=== PATIENT | male | born 1955 | race Caucasian/White ===

== ENCOUNTER 2019-10-14 12:35 | Emergency (ER) | payer MEDICAID ==
[~2019-10-14] VITALS: Ht 175.3 cm; Wt 63.6 kg
[~2019-10-14 12:35] MED LIST: ASPI-611 PO; BP MED; HYDR-2382 PO; OMEP20CA15 PO
[2019-10-14] MEDS ORDERED: HYDROcodone/acetaminophen 10/325mg tab PO ONE (14:30)
[2019-10-14] MEDS ORDERED: GABA-530 PO (14:31)
--- NOTE | 2019-10-14 14:34 | NUR ---
Pt transported to X-ray with Camera Machinist.
[2019-10-14 15:33] VITALS: BP 162/91
== END 2019-10-14 15:39 | disposition home or self-care (01) ==
LOC: ER 12:36
DX: S22.31XA Fracture of one rib, right side, initial encounter for closed fracture (principal); R91.8 Other nonspecific abnormal finding of lung field; Z86.69 Personal history of other diseases of the nervous system and sense organs; Z90.89 Acquired absence of other organs; Z88.0 Allergy status to penicillin; Z72.89 Other problems related to lifestyle; Z79.899 Other long term (current) drug therapy; W01.0XXA Fall on same level from slipping, tripping and stumbling without subsequent striking against object, initial encounter; Y93.89 Activity, other specified; Y92.89 Other specified places as the place of occurrence of the external cause; Y99.8 Other external cause status
CPT/HCPCS: 71045; 71100; 99284

== ENCOUNTER 2020-09-11 14:24 | Emergency (ER) | payer MEDICAID ==
[~2020-09-11] VITALS: Ht 175.3 cm; Wt 54.5 kg
[~2020-09-11 14:24] MED LIST changes: +GABA-530 PO
[2020-09-11 14:37] VITALS: BP 120/63
[2020-09-11] MEDS ORDERED: ondansetron 4mg rapidly disintigrating tab PO ONE (14:50)
[2020-09-11] MEDS ORDERED: morphine 4 MG/ML inj SYRINge IM ONE (14:50)
[2020-09-11] MEDS ORDERED: HYDR-3965 PO (15:05)
[2020-09-11] MEDS ORDERED: ONDA4TAB6 PO (15:05)
== END 2020-09-11 15:33 | disposition home or self-care (01) ==
LOC: ER 14:24
DX: S42.031A Displaced fracture of lateral end of right clavicle, initial encounter for closed fracture (principal); M25.511 Pain in right shoulder; Z86.69 Personal history of other diseases of the nervous system and sense organs; Z90.89 Acquired absence of other organs; Z72.89 Other problems related to lifestyle; Z88.0 Allergy status to penicillin; Z79.82 Long term (current) use of aspirin; Z79.899 Other long term (current) drug therapy; W19.XXXA Unspecified fall, initial encounter; Y93.89 Activity, other specified; Y92.89 Other specified places as the place of occurrence of the external cause; Y99.8 Other external cause status
CPT/HCPCS: 73030; 96372; 99284; J2270

== ENCOUNTER 2020-10-05 08:28 | Day surgery (SDC) | payer MEDICAID ==
[~2020-10-05] VITALS: Ht 175.3 cm; Wt 53.2 kg
[~2020-10-05 08:28] MED LIST changes: +ALBU90AE2 INH; +ATOR40TA PO; -BP MED; +CHOL20002 PO; +FINA5TAB11 PO; -GABA-530 PO; +LISI20TA28 PO; +MAGN400T39 PO; -OMEP20CA15 PO; +PANT-47 PO; +TIOT4MIS3 INH; +albuterol 2.5 MG/3 ML nebule NEB ONE; +cefazolin/dext.iso 2gm/100ml IV ONE; +famotidine 20mg tablet PO ONE; +ringers solution, lacted 1,000 ML IV SCH
[2020-10-05 10:15] VITALS: BP 154/72
[2020-10-05 10:25] LABS: EOSINOPHILS % (AUTO) 0.7 % (0-6); LYMPHOCYTES # (AUTO) 0.8 X10'3 (1.1-4.8); LYMPHOCYTES % (AUTO) 14.9 % (21-51); MEAN CORPUSCULAR HGB CONC 34.6 g/dL (33.0-36.5); MEAN CORPUSCULAR VOLUME 95.3 FL (78-98); MEAN PLATELET VOLUME 6.8 FL (7.4-10.4); MONOCYTES # (AUTO) 0.4 X10'3 (0-0.9); MONOCYTES % (AUTO) 7.7 % (2-12); NEUTROPHILS # (AUTO) 3.8 X10'3 (1.8-7.7); NEUTROPHILS % (AUTO) 75.7 % (42-75); PRE OP HEMATOCRIT 36.5 % (42.0-52.0); PRE OP HEMOGLOBIN 12.6 g/dL (14.0-17.9); PRE OP PLATELET COUNT 241 X10'3 (140-440); RED BLOOD COUNT 3.83 X10'6 (4.70-6.10); RED CELL DISTRIBUTION WIDTH 15.6 % (11.5-14.5)
[2020-10-05 10:55] LABS: ALBUMIN 3.4 G/DL (3.4-5.0); ALKALINE PHOSPHATASE 112 IU/L (46-116); BLOOD UREA NITROGEN 15 MG/DL (7-18); BUN/CREATININE RATIO 17.6 (5.4-32.0); CALCIUM 8.7 MG/DL (8.5-10.1); CHLORIDE 95 MMOL/L (99-107); CREATININE 0.85 MG/DL (0.60-1.10); PRE OP ALT 19 U/L (30-65); PRE OP ANION GAP 7 (8-16); PRE OP AST 33 U/L (10-37); PRE OP BILIRUB, TOTAL 0.7 MG/DL (0.0-1.0); PRE OP GLUCOSE 86 MG/DL (70-104); PRE OP POTASSIUM 5.7 MMOL/L (3.4-5.1); TOTAL CARBON DIOXIDE 23.4 MMOL/L (24-32); TOTAL PROTEIN 6.9 G/DL (6.4-8.2); eGFR > 90 ML/MIN
[2020-10-05 10:58] LABS: PRE OP SODIUM 125 MMOL/L (135-145)
--- NOTE | 2020-10-05 16:25 | NUR ---
PT NOW HAS INFORMED ME THAT HE HAD SEIZURES IN THE PAST, ABOUT A YEAR AGO BUT NO LONGER HAS THEM AND STOPPED TAKING HIS MEDICATION ABOUT 9 MONTHS AGO, WHEN PT ASKED ABOUT HIS DRINKING HX, HE STATES HE HAS A FEW BEERS OCCASIONALLY BUT THAT THE SEIZURES WERE NOT FROM DRINKING. DISCUSSED THIS W/THE OR NURSE WHO IS GOING TO UPDATE THE ANESTHESIOLOGIST. Addendum: 10/05/20 at 1628 by Bev Lucas RN Amended: Links added.
[2020-10-05] MEDS ORDERED: vancomycin 1,000mg inj ONE (17:41)
[2020-10-05] MEDS ORDERED: sevoflurane 250ml liquid IH ONE (17:45)
[2020-10-05] MEDS ORDERED: cloNIDine hcl/PF 100mcg/ml inj ONE (17:45)
[2020-10-05] MEDS ORDERED: fentaNYL/PF 50MCG/1 ML 2ML syringe ONE (17:47)
--- NOTE | 2020-10-05 17:50 | NUR ---
DR ALARCON AND DR TANG AWARE OF PTS LABS, DECISION TO TAKE PT TO THE OR. Addendum: 10/05/20 at 1810 by Bev Lucas RN Amended: Links added.
[2020-10-05] MEDS ORDERED: midazolam 1 mg/ML 2ml injection ONE (17:54)
[2020-10-05] MEDS ORDERED: ROPIVAcaine 0.5% (5mg/ml) 30ml vial ONE (18:18)
[2020-10-05] MEDS ORDERED: 0.9 % SODIUM CHLORIDE 10 ML VIAL ONE (18:18)
[2020-10-05] MEDS ORDERED: LIDOcaine 2% (20mg/ml) 5ml vial ONE (18:18)
[2020-10-05] MEDS ORDERED: propofol inj 20 ML IV ONE (18:18)
[2020-10-05] MEDS ORDERED: ePHEDrine 50MG/ML INJ. ONE (18:19)
[2020-10-05] MEDS ORDERED: LIDOcaine 1%/PF 5ML 10 MG/ML VIAL ONE (18:19)
[2020-10-05] MEDS ORDERED: rocuronium 10mg/ml inj IV ONE (18:19)
[2020-10-05] MEDS ORDERED: ondansetron/PF 4mg/2ml inj ONE (19:25)
[2020-10-05] MEDS ORDERED: dexamethasone sod phosphate 4mg/ml inj. ONE (19:25)
[2020-10-05 20:00] VITALS: BP 192/92
[2020-10-05] MEDS ORDERED: morphine 4 MG/ML inj SYRINge IV PRN (20:00)
[2020-10-05] MEDS ORDERED: morphine 2 MG/ML inj. syringe IV PRN (20:00)
[2020-10-05] MEDS ORDERED: acetaminophen 1,000mg/100ml IV 100 ML IV PRN (20:00)
[2020-10-05] MEDS ORDERED: hydrALAZINE 20mg/ml inj. IV PRN (20:00)
[2020-10-05] MEDS ORDERED: ringers solution, lacted 1,000 ML IV SCH (20:00)
[2020-10-05] MEDS ORDERED: ketorolac trometh. 30mg/ml inj. IV ONE (20:00)
[2020-10-05] MEDS ORDERED: labetalol 20mg/4ml (5mg/ml) syringe IV PRN (20:00)
[2020-10-05] MEDS ORDERED: meperidine/PF 25mg/ml syringe IV PRN ×3 (20:00)
[2020-10-05] MEDS ORDERED: proCHLORperazine 10 MG/2 ml inj IV PRN (20:00)
[2020-10-05] MEDS ORDERED: ondansetron/PF 4mg/2ml inj IV PRN (20:00)
--- NOTE | 2020-10-05 20:00 | NUR ---
Received from OR via [facility] , accompanied by Anesthesiologist KITTY and report given by Anesthesiolgist. PATIENT WITH 20G PI JOSE LEFT UE RUNNING NS AT 100. DENIES PAIN. PATIENT RIGHT UE IN SLING . NO DRAINAGE PRESENT TO DRESSING. Addendum: 10/05/20 at 2012 by Zaid Lee RN, RN Amended: Links added.
[2020-10-05 20:10] VITALS: BP 166/87
[2020-10-05 20:20] VITALS: BP 183/94
[2020-10-05 20:30] VITALS: BP 170/92
[2020-10-05 20:40] VITALS: BP 170/89
--- NOTE | 2020-10-05 20:50 | NUR ---
ALL DISCHARGE CRITERIA HAS BEEN MET. VSS, PAIN AT A TOLERABLE LEVEL, ABLE TO SAFELY AMBULATE AND TRANSFER SELF. IV TAKEN OUT WITHOUT ANY COMPLICATIONS. ALL DISCHARGE INSTRUCTIONS COVERED WITH PATIENT AND ALL QUESTIONS ANSWERED. PATIENT TAKEN OUT VIA WHEELCHAIR TO PERSONAL VEHICLE WHERE FAMILY/FRIEND DROVE PATIENT HOME. PATIENTS GRANDDAUGHTER TOOK PATIENT HOME. REVIEWED PHARMACY LOCATION AND MEDS TO TAKE. WELL TO PUT THE POWDER PACK IN THE FREEZER AND THE DC PAPERWORK INFORMATION. SHE EXPRESSED UNDERSTANDING. Addendum: 10/05/20 at 2109 by Zaid Lee RN, RN Amended: Links added.
== END 2020-10-05 20:50 | disposition home or self-care (01) ==
LOC: PAS 08:28
PROVIDERS: ATTEND Orthopaedic Surgery
DX: S42.031A Displaced fracture of lateral end of right clavicle, initial encounter for closed fracture (principal); I10 Essential (primary) hypertension; J43.9 Emphysema, unspecified; E87.1 Hypo-osmolality and hyponatremia; E78.5 Hyperlipidemia, unspecified; G89.18 Other acute postprocedural pain; F17.210 Nicotine dependence, cigarettes, uncomplicated; Z85.118 Personal history of other malignant neoplasm of bronchus and lung; Z88.0 Allergy status to penicillin; Z79.899 Other long term (current) drug therapy; Z20.822 Contact with and (suspected) exposure to COVID-19; X58.XXXA Exposure to other specified factors, initial encounter; Y93.89 Activity, other specified; Y92.89 Other specified places as the place of occurrence of the external cause; Y99.8 Other external cause status
CPT/HCPCS: 23515; 36415; 64415; 73000; 76000; 76942; 80053; 82948; 85025; 87426; 93005; 94640; 94760; C1713; J0735; J1100; J2001; J2250; J2405; J2704; J3010; J3370; A4215; A4565; A4618; A7000; J2795; J3490; J7120

== ENCOUNTER 2021-07-01 08:05 | Emergency (ER) | payer MEDICARE, MEDICAID ==
[~2021-07-01] VITALS: Ht 175.3 cm; Wt 52.3 kg
[~2021-07-01 08:05] MED LIST changes: -albuterol 2.5 MG/3 ML nebule NEB ONE; -cefazolin/dext.iso 2gm/100ml IV ONE; -famotidine 20mg tablet PO ONE; -ringers solution, lacted 1,000 ML IV SCH
[2021-07-01 08:28] LABS: BASOPHILS # (AUTO) 0.1 X10'3 (0-0.2); BASOPHILS % (AUTO) 1.1 % (0-1); EOSINOPHILS # (AUTO) 0.2 X10'3 (0-0.9); EOSINOPHILS % (AUTO) 4.1 % (0-6); HEMATOCRIT 34.3 % (42.0-52.0); HEMOGLOBIN 11.6 g/dl (14.0-17.9); LYMPHOCYTES # (AUTO) 1.2 X10'3 (1.1-4.8); LYMPHOCYTES % (AUTO) 21.3 % (21-51); MEAN CORPUSCULAR HEMOGLOBIN 33.9 PG (27.0-31.0); MEAN CORPUSCULAR HGB CONC 33.8 g/dL (33.0-36.5); MEAN CORPUSCULAR VOLUME 100.3 FL (78-98); MONOCYTES # (AUTO) 0.5 X10'3 (0-0.9); MONOCYTES % (AUTO) 9.2 % (2-12); NEUTROPHILS # (AUTO) 3.6 X10'3 (1.8-7.7); NEUTROPHILS % (AUTO) 64.3 % (42-75); PLATELET COUNT 281 X10'3 (140-440); RED BLOOD COUNT 3.42 X10'6 (4.70-6.10); RED CELL DISTRIBUTION WIDTH 14.2 % (11.5-14.5); WHITE BLOOD COUNT 5.6 X10'3 (4.5-11.0)
[2021-07-01 08:40] LABS: ALANINE AMINOTRANSFERASE 15 U/L (12-78); ALBUMIN 3.1 G/DL (3.4-5.0); ALBUMIN/GLOBULIN RATIO 0.8 (1.1-1.5); ALKALINE PHOSPHATASE 100 IU/L (46-116); ANION GAP 4 (8-16); ASPARTATE AMINO TRANSFERASE 20 U/L (10-37); BILIRUBIN,TOTAL 0.5 MG/DL (0.1-1.0); BLOOD UREA NITROGEN 10 MG/DL (7-18); BUN/CREATININE RATIO 14.9 (5.4-32.0); CALCIUM 8.3 MG/DL (8.5-10.1); CHLORIDE 97 MMOL/L (99-107); CREATININE 0.67 MG/DL (0.60-1.10); GLUCOSE 112 MG/DL (70-104); POTASSIUM 4.5 MMOL/L (3.5-5.1); SODIUM 127 MMOL/L (135-145); TOTAL PROTEIN 6.8 G/DL (6.4-8.2); eGFR > 90 ML/MIN
[2021-07-01] MEDS ORDERED: ketorolac trometh inj. 60 MG/2 ML VIAL IM ONE (08:50)
[2021-07-01] MEDS ORDERED: ketorolac tromethamine 15mg/ml inj. IM ONE (08:55)
[2021-07-01 09:29] VITALS: BP 140/80
== END 2021-07-01 09:59 | disposition home or self-care (01) ==
LOC: ER 08:06
DX: R07.89 Other chest pain (principal); R06.02 Shortness of breath; G89.29 Other chronic pain; M25.511 Pain in right shoulder; R53.1 Weakness; F17.210 Nicotine dependence, cigarettes, uncomplicated; Z72.89 Other problems related to lifestyle; Z90.89 Acquired absence of other organs; Z88.0 Allergy status to penicillin; Z79.82 Long term (current) use of aspirin; Z79.899 Other long term (current) drug therapy
CPT/HCPCS: 36415; 71045; 80053; 83735; 83880; 84484; 85025; 93005; 96372; 99285; J1885

== ENCOUNTER 2022-05-20 08:32 | Emergency (ER) | payer MEDICARE, MEDICAID ==
[~2022-05-20] VITALS: Ht 175.3 cm; Wt 52.3 kg
[2022-05-20 08:39] VITALS: BP 165/80
[2022-05-20] MEDS ORDERED: CLOT24CR2 TOP (10:03)
== END 2022-05-20 10:13 | disposition home or self-care (01) ==
LOC: ER 08:33
DX: B35.3 Tinea pedis (principal); L30.1 Dyshidrosis [pompholyx]; Z72.89 Other problems related to lifestyle; Z79.899 Other long term (current) drug therapy; Z88.0 Allergy status to penicillin; Z79.82 Long term (current) use of aspirin
CPT/HCPCS: 99282

== ENCOUNTER 2022-12-27 13:44 | Emergency (ER) | payer MEDICARE, MEDICAID ==
[~2022-12-27] VITALS: Ht 175.3 cm; Wt 47.3 kg
[~2022-12-27 13:44] MED LIST changes: +CLOT24CR2 TOP
[2022-12-27] MEDS ORDERED: aspirin 81mg tab.chew PO ONE (15:05)
[2022-12-27 15:19] VITALS: BP 148/75; PULSE 104; RESP 16; TEMP 98; O2SAT 100
[2022-12-27 15:34] LABS: BASOPHILS % (AUTO) 0.5 % (0-1); EOSINOPHILS % (AUTO) 0.1 % (0-6); HEMATOCRIT 30.8 % (42.0-52.0); HEMOGLOBIN 10.6 g/dl (14.0-17.9); LYMPHOCYTES # (AUTO) 0.5 X10'3 (1.1-4.8); LYMPHOCYTES % (AUTO) 10.5 % (21-51); MEAN CORPUSCULAR HEMOGLOBIN 34.5 PG (27.0-31.0); MEAN CORPUSCULAR HGB CONC 34.5 g/dL (33.0-36.5); MEAN CORPUSCULAR VOLUME 99.7 FL (78-98); MEAN PLATELET VOLUME 6.9 FL (7.4-10.4); MONOCYTES # (AUTO) 0.2 X10'3 (0-0.9); MONOCYTES % (AUTO) 5.1 % (2-12); NEUTROPHILS # (AUTO) 4.1 X10'3 (1.8-7.7); NEUTROPHILS % (AUTO) 83.8 % (42-75); PLATELET COUNT 210 X10'3 (140-440); RED BLOOD COUNT 3.09 X10'6 (4.70-6.10); RED CELL DISTRIBUTION WIDTH 13.7 % (11.5-14.5); WHITE BLOOD COUNT 4.9 X10'3 (4.5-11.0)
[2022-12-27 15:50] LABS: ALBUMIN 2.8 G/DL (3.4-5.0); ALBUMIN/GLOBULIN RATIO 0.8 (1.1-1.5); ALKALINE PHOSPHATASE 100 IU/L (46-116); ANION GAP 11 (8-16); ASPARTATE AMINO TRANSFERASE 17 U/L (10-37); BILIRUBIN,TOTAL 0.2 MG/DL (0.1-1.0); BLOOD UREA NITROGEN 32 MG/DL (7-18); BUN/CREATININE RATIO 27.1 (10.0-20.0); CALCIUM 7.8 MG/DL (8.5-10.1); CHLORIDE 100 MMOL/L (99-107); CREATININE 1.18 MG/DL (0.60-1.10); GLUCOSE 105 MG/DL (70-104); POTASSIUM 5.1 MMOL/L (3.5-5.1); SODIUM 128 MMOL/L (135-145); TOTAL CARBON DIOXIDE 16.6 MMOL/L (24-32); TOTAL PROTEIN 6.2 G/DL (6.4-8.2); eCRCL 41 ML/MIN; eGFR 62 ML/MIN
[2022-12-27 16:00] LABS: ALANINE AMINOTRANSFERASE 8 U/L (12-78); MAGNESIUM 2.1 MG/DL (1.5-2.4); PRO BRAIN NATRIURETIC PEPTIDE 349 PG/ML (0-125)
== END 2022-12-27 19:51 | disposition left against medical advice (07) ==
LOC: ER 13:44
DX: R07.89 Other chest pain (principal); Z53.21 Procedure and treatment not carried out due to patient leaving prior to being seen by health care provider
CPT/HCPCS: 36415; 71045; 80053; 83735; 83880; 84484; 85025; 93005; 99281

== ENCOUNTER 2023-04-16 09:09 | Emergency (ER) | payer MEDICAID, MEDICARE ==
[~2023-04-16] VITALS: Ht 175.3 cm; Wt 62.3 kg
[2023-04-16] MEDS ORDERED: thiamine 100mg/ml 2ml inj. IV ONE (11:05)
[2023-04-16 12:02] LABS: BILIRUBIN,URINE NEGATIVE (Neg); CLARITY,URINE SLIGHTLY CLOUDY (Clear); COLOR,URINE YELLOW (Yellow); GLUCOSE, URINE NEGATIVE (Neg); KETONES,URINE TRACE mg/dl (Neg); LEUKOCYTE ESTERASE ,URINE NEGATIVE (Neg); NITRITES, URINE NEGATIVE (Neg); OCCULT BLOOD,URINE LARGE (Neg); PROTEIN,URINE 30 mg/dl (Neg); UROBILINOGEN,URINE 0.2 E.U/dL (0.2-1.0)
[2023-04-16 12:08] LABS: URINE AMPHETAMINE SCREEN NEGATIVE (Neg); URINE BARBITUATE SCREEN NEGATIVE (Neg); URINE BENZODIAZEPINES SCREEN NEGATIVE (Neg); URINE CANNABINOID SCREEN NEGATIVE (Neg); URINE COCAINE SCREEN NEGATIVE (Neg); URINE METHADONE SCREEN NEGATIVE (Neg); URINE OPIATE SCREEN POSITIVE (Neg); URINE PHENCYCLIDINE SCREEN NEGATIVE (Neg)
[2023-04-16 12:14] LABS: UA COLLECTION TYPE NON-SPECIFIED
[2023-04-16 12:28] LABS: BASOPHILS % (AUTO) 0.4 % (0-1); EOSINOPHILS # (AUTO) 0.1 X10'3 (0-0.9); EOSINOPHILS % (AUTO) 0.7 % (0-6); HEMATOCRIT 36.2 % (42.0-52.0); HEMOGLOBIN 12.3 g/dl (14.0-17.9); LYMPHOCYTES % (AUTO) 9.9 % (21-51); MEAN CORPUSCULAR HEMOGLOBIN 34.2 PG (27.0-31.0); MEAN CORPUSCULAR HGB CONC 34.1 g/dL (33.0-36.5); MEAN CORPUSCULAR VOLUME 100.4 FL (78-98); MEAN PLATELET VOLUME 6.4 FL (7.4-10.4); MONOCYTES # (AUTO) 0.7 X10'3 (0-0.9); NEUTROPHILS # (AUTO) 7.9 X10'3 (1.8-7.7); PLATELET COUNT 266 X10'3 (140-440); RED CELL DISTRIBUTION WIDTH 13.1 % (11.5-14.5); WHITE BLOOD COUNT 9.7 X10'3 (4.5-11.0)
[2023-04-16 12:31] LABS: SQUAMOUS EPITHELIAL CELL,UR FEW /LPF (FEW); TRANSITIONAL EPI CELLS,URINE FEW /HPF
[2023-04-16 12:32] LABS: FINE GRANULAR CAST 0-3 /LPF (NEGATIVE); HYALINE CASTS 0-3 /LPF (NEGATIVE)
[2023-04-16 12:33] LABS: RBC,URINE TNTC /HPF (0-2)
[2023-04-16 12:34] LABS: WBC,URINE 0-4 /HPF (0-4)
[2023-04-16 12:35] LABS: ALANINE AMINOTRANSFERASE 21 U/L (12-78); ALBUMIN 3.4 G/DL (3.4-5.0); ALBUMIN/GLOBULIN RATIO 0.8 (1.1-1.5); ALKALINE PHOSPHATASE 158 IU/L (46-116); ANION GAP 10 (8-16); ASPARTATE AMINO TRANSFERASE 43 U/L (10-37); BILIRUBIN,TOTAL 0.7 MG/DL (0.1-1.0); BLOOD UREA NITROGEN 15 MG/DL (7-18); BUN/CREATININE RATIO 18.8 (10.0-20.0); CALCIUM 8.4 MG/DL (8.5-10.1); CHLORIDE 96 MMOL/L (99-107); GLUCOSE 76 MG/DL (70-104); MAGNESIUM 1.9 MG/DL (1.5-2.4); POTASSIUM 4.4 MMOL/L (3.5-5.1); SODIUM 126 MMOL/L (135-145); TOTAL CARBON DIOXIDE 20.5 MMOL/L (24-32); TOTAL PROTEIN 7.7 G/DL (6.4-8.2); eCRCL 79 ML/MIN; eGFR > 90 ML/MIN
[2023-04-16 12:38] LABS: WBC CLUMPS,URINE FEW /HPF (NEGATIVE)
[2023-04-16 12:40] LABS: BACTERIA,URINE 2+ /HPF (Neg)
[2023-04-16 20:04] VITALS: BP 171/88; PULSE 77; RESP 16; TEMP 97.8; O2SAT 98
== END 2023-04-16 20:38 | disposition home or self-care (01) ==
LOC: ER 09:09
DX: R53.1 Weakness (principal); M79.604 Pain in right leg; M79.605 Pain in left leg; Z88.0 Allergy status to penicillin; Z88.6 Allergy status to analgesic agent; Z79.899 Other long term (current) drug therapy; W19.XXXA Unspecified fall, initial encounter; Y93.89 Activity, other specified; Y92.89 Other specified places as the place of occurrence of the external cause; Y99.8 Other external cause status
CPT/HCPCS: 36415; 72146; 72148; 73110; 80053; 80305; 81001; 83735; 85025; 96374; 99285; J3411; J7030

== ENCOUNTER 2024-02-20 14:12 | Emergency (ER) | payer MEDICARE, MEDICAID ==
[~2024-02-20] VITALS: Ht 175.3 cm; Wt 53.0 kg
[~2024-02-20 14:12] MED LIST changes: -ALBU90AE2 INH; +ALBU90AE3 INH; -CLOT24CR2 TOP; +CLOT24CR5 TOP
[2024-02-20 14:25] VITALS: BP 162/80; PULSE 90; RESP 16; O2SAT 98
[2024-02-20] MEDS ORDERED: HYDR-3965 PO (15:48)
[2024-02-20 16:08] VITALS: TEMP 97.5
== END 2024-02-20 16:11 | disposition home or self-care (01) ==
LOC: ER 14:12
DX: S52.501A Unspecified fracture of the lower end of right radius, initial encounter for closed fracture (principal); M25.531 Pain in right wrist; Z88.0 Allergy status to penicillin; Z79.899 Other long term (current) drug therapy; Z79.82 Long term (current) use of aspirin; Z90.89 Acquired absence of other organs; W19.XXXA Unspecified fall, initial encounter; Y93.89 Activity, other specified; Y92.89 Other specified places as the place of occurrence of the external cause; Y99.8 Other external cause status
CPT/HCPCS: 29125; 73110; 99284; A6446; A6449

== ENCOUNTER 2024-07-25 11:35 | Emergency (ER) | payer MEDICARE, MEDICAID ==
[~2024-07-25] VITALS: Ht 175.3 cm; Wt 51.5 kg
[2024-07-25] MEDS ORDERED: HYDR-3965 PO (13:34)
[2024-07-25] MEDS: HYDROcodone/acetaminophen 10/325mg tab PO ONE (13:41)
[2024-07-25 13:49] VITALS: BP 144/85; PULSE 88; RESP 16; TEMP 98.8; O2SAT 97
== END 2024-07-25 13:53 | disposition home or self-care (01) ==
LOC: ER 11:36
DX: M25.512 Pain in left shoulder (principal); Z88.0 Allergy status to penicillin; Z90.89 Acquired absence of other organs; F10.90 Alcohol use, unspecified, uncomplicated; Z79.82 Long term (current) use of aspirin; W19.XXXA Unspecified fall, initial encounter; Y93.89 Activity, other specified; Y92.89 Other specified places as the place of occurrence of the external cause; Y99.8 Other external cause status; Y90.9 Presence of alcohol in blood, level not specified
CPT/HCPCS: 73000; 73030; 99284

== ENCOUNTER → 2024-08-02 | Emergency (ER) | payer MEDICARE, MEDICAID ==
[~2024-08-02] VITALS: Ht 175.3 cm; Wt 52.5 kg
[~2024-08-02] MED LIST changes: +HYDR-3965 PO
[2024-08-02 13:00] VITALS: BP 177/87; PULSE 77; RESP 19; TEMP 97.8; O2SAT 98
== END | disposition home or self-care (01) ==
LOC: ER 12:50
DX: S40.012A Contusion of left shoulder, initial encounter (principal); S43.202A Unspecified subluxation of left sternoclavicular joint, initial encounter; Z90.89 Acquired absence of other organs; Z79.82 Long term (current) use of aspirin; X58.XXXA Exposure to other specified factors, initial encounter; Y93.89 Activity, other specified; Y92.89 Other specified places as the place of occurrence of the external cause; Y99.8 Other external cause status
CPT/HCPCS: 71045; 73030; 99284

== ENCOUNTER 2024-08-16 09:13 | Emergency (ER) | payer OTHER, MEDICARE, MEDICAID ==
[~2024-08-16] VITALS: Ht 175.3 cm; Wt 53.5 kg
[2024-08-16] MEDS: LIDOcaine 5% patch TP ONE (10:33)
[2024-08-16] MEDS: acetaminophen 325mg tablet PO ONE (10:33)
[2024-08-16] MEDS ORDERED: CELE-193 PO (10:48)
[2024-08-16 11:00] VITALS: BP 122/69; PULSE 86; RESP 16; TEMP 97.8; O2SAT 99
[2024-08-16] MEDS ORDERED: LIDO700A32 TOP (11:26)
== END 2024-08-16 11:03 | disposition home or self-care (01) ==
LOC: ER 09:14
DX: M25.512 Pain in left shoulder (principal); Z90.89 Acquired absence of other organs; Z79.82 Long term (current) use of aspirin
CPT/HCPCS: 99283; A4565